=== PATIENT | female | born 1970 | race Asian ===

== ENCOUNTER 2018-06-17 23:11 | Emergency (ER) | payer SELFPAY ==
[~2018-06-17] VITALS: Ht 149.9 cm; Wt 66.0 kg
[2018-06-18] MEDS ORDERED: DIPHENHYDRAMINE 25MG CAPSULE PO ONE (02:45)
[2018-06-18 03:03] VITALS: BP 138/76
== END 2018-06-18 03:05 | disposition home or self-care (01) ==
LOC: ER 23:11
DX: J06.9 Acute upper respiratory infection, unspecified (principal); Z98.890 Other specified postprocedural states
CPT/HCPCS: 71045; 81025; 99283; Q0163; Z7610